=== PATIENT | male | born 1995 | race Caucasian/White ===

== ENCOUNTER 2025-08-06 18:40 | Emergency (ER) | payer OTHER, SELFPAY ==
[2025-08-06 18:44] VITALS: BP 100/78
[2025-08-06 19:16] LABS: Hematocrit 45.1 % (39.0-52.0); Hemoglobin 15.4 g/dL (13.0-18.0); Mean Corp Hgb Conc. 34.1 g/dL (33.0-37.0); Mean Corpuscular Volume 79.8 fL (80.0-94.0); Nucleated Red Blood Cells % 0 % (-); Platelet Count 440 10^3/uL (130-400); Red Cell Dist. Width 12.4 % (11.5-14.5)
[2025-08-06 19:36] LABS: ALT (SGPT) 21 U/L (0-50); AST (SGOT) 25 U/L (17-59); Albumin 5.2 g/dl (3.5-5.0); Alkaline Phosphatase 93 U/L (38-126); Blood Urea Nitrogen 19 mg/dl (9-20); Calcium 10.2 mg/dl (8.4-10.2); Carbon Dioxide 27 mmol/L (22-30); Chloride 100 mmol/L (98-107); Glucose 98 mg/dl (70-99); Potassium 4.4 mmol/L (3.5-5.1); Sodium 136 mmol/L (135-145); Total Protein 8.5 g/dl (6.3-8.2); eGFR > 60.00
--- NOTE | 2025-08-06 22:34 | ED.GENMED ---
History of Present Illness
General
Chief Complaint: Headache
Time Seen by Provider: 08/06/25 22:21
History of Present Illness
History of Present Illness:
Patient is a 29-year-old male with a history of anxiety who presents to the emergency department with numerous symptoms. He reports over the past 3 days he has had difficulty thinking, some left-sided head pressure, twitching in his left eyelid.
He is very worried about his symptoms. He states he had a sore throat a few weeks ago and was tested for strep but this was negative on swab and on culture. He is concerned he may have had a missed infection. Denies any fevers or chills endorses
mild left-sided headache. Denies neck stiffness.
Phy Exam
Physical Exam
Physical Exam:
GENERAL APPEARANCE: NAD, well developed/ well nourished
EYES lids/conjunctiva normal
EARS/NOSE/THROAT Mucous membranes moist, uvula midline without oral pharyngeal erythema, exudate or swelling
HEAD/NECK normocephalic atraumatic, neck is supple. No meningeal signs
RESPIRATORY respiratory effort normal, speaks in full sentences, no accessory muscle use. Lungs clear to auscultation without rhonchi, wheezes, rales
CARDIAC Regular rate and rhythm, no edema.
ABDOMINAL Soft, ND/NT.
MUSCLES/EXTREMITIES No abnormal range of motion, no swelling.
SKIN Warm, pink and dry. No rashes
NEUROLOGICAL Speech is clear and appropriate. Normal level of consciousness. 5/5 strength in all extremities. Cranial nerves II through XII intact
PSYCH anxious affect
Course
Orders/Labs/Results
Orders:
Orders
08/06/25 18:53
Complete Blood Count/With Diff Urgent
Comprehensive Metabolic Panel Urgent
Monotest Urgent
Comment: ADD ON
08/06/25 22:32
Add On- LAB Urgent
Tests Added?: monospot
08/06/25 22:33
CT Head W/o Iv Contrast Urgent
Comment:
Reason For Exam: headache
08/06/25 22:39
COVID-19 Antigen Urgent
Source: Nasal Swab
Influenza A+B Rapid Molecular Urgent
PERLA Source: Nasal Swab
Specimen Description:
Abnormal Lab Results
08/06/25
18:53
WBC 11.0 H 10^3/uL
(4.8-10.8)
MCV 79.8 L fL
(80.0-94.0)
Plt Count 440 H 10^3/uL
(130-400)
Absolute Lymphs (auto) 4.2 H 10^3/uL
(1.2-3.4)
Absolute Monos (auto) 0.8 H 10^3/uL
(0.1-0.6)
Total Protein 8.5 H g/dl
(6.3-8.2)
Albumin 5.2 H g/dl
(3.5-5.0)
08/06/25 18:53
08/06/25 18:53
Vital Signs
Initial and Last Documented VS:
Initial Vital Signs
Temp Pulse Resp BP Pulse Ox
98.0 F 112 16 100/78 98
08/06/25 18:44 08/06/25 18:44 08/06/25 18:44 08/06/25 18:44 08/06/25 18:44
Last Documented Vital Signs
Temp Pulse Resp BP Pulse Ox
98.0 F 112 16 118/81 99
08/06/25 18:44 08/06/25 18:44 08/06/25 18:44 08/06/25 22:42 08/06/25 22:47
*Pulse Oximetry
SaO2: 98
Oxygen Mode of Delivery: Room air
Patient hypoxic: no
*Critical Care Note
Total Time (30-74mins, 75-104mins- exclusive of procedures): Not Applicable
ED Attending Note
ED Attending Note
ED Attending Note:
Patient presents with cognitive issues as well as multiple other somatic complaints in the setting of recent upper respiratory infection. He is nontoxic-appearing, hemodynamically stable. Normal neurologic exam. Labs and CT head are reassuring.
Unclear etiology of symptoms possibly anxiety related versus postviral syndrome. No evidence of encephalitis or meningitis at this time. Instructed patient to follow-up with his primary doctor as well as his neurologist whom he saw last year as he
was having 'brain fog'
-
Portions of this chart may have been created with voice recognition software.� Occasional wrong word or��sound alike� substitutions may have occurred due to the inherent limitations of voice recognition software.
Discharge Plan
Departure
Patient Disposition: Home (Routine Discharge)
Date of Disposition: 08/07/25
Time of Disposition: 00:38
Patient with high blood pressure during this ER visit?: No
Discharge Problem:
Cognitive changes
Instructions: Long COVID
Referrals:
STANLEY DORSEY [Other]
Activity Restrictions/Additional Instructions:
Please follow-up closely with your primary doctor as well as the neurologist. Return to the emergency department with new or worsening symptoms
Interventions
Interventions:
*Risk Screen - Suicide Last Done: 08/06/25 18:44
*General Assessment Last Done: 08/06/25 18:44
*Neglect/Abuse Screening Last Done: 08/06/25 18:44
*ED- Fall Risk Assessment Last Done: 08/06/25 22:47
*ED COVID-19 Vaccine History Last Done: 08/06/25 22:47
*ED Influenza Vaccine History Last Done: 08/06/25 22:47
*Nursing Disposition Last Done: 08/07/25 00:48
ED- Neurological Assessment Last Done: 08/06/25 22:47
Discharge Date and Time
Discharge Date/Time: 08/07/25 00:52
Print Language: OMANI
[2025-08-06 22:42] VITALS: BP 118/81
[2025-08-06 22:44] VITALS: BMI 21.3
[2025-08-06 22:58] LABS: COVID-19 Antigen Negative (Negative)
== END 2025-08-07 00:52 | disposition home or self-care (01) ==
LOC: EMR 18:40
PROVIDERS: Emergency Medicine; EMERGENCY PHYSICIAN Emergency Medicine
DX: R41.89 Other symptoms and signs involving cognitive functions and awareness (principal); R51.9 Headache, unspecified; F41.9 Anxiety disorder, unspecified
CPT/HCPCS: 99284; 70450; 80053; 85025; 86308; 87502; 87811